=== PATIENT | female | born 1950 | race Caucasian/White ===

== ENCOUNTER 2022-05-02 19:18 | Emergency (ER) | payer MEDICARE, OTHER ==
[~2022-05-02] VITALS: Ht 167.6 cm; Wt 72.6 kg
--- OUTSIDE RECORDS SUMMARY | 2022-05-02 19:20 | XMS ---
PreManage Notification: GUILLERMINA HOPKINS Security Transportation Refrigeration Technician Events No recent Security Events currently on file CRITERIA MET - [facility]ERNICE CARE PROVIDERS Nedra Lowery Physician Biology Adjunct Instructor Current [facility]O PHONE: Unknown SANDY BETTENCOURT Nurse Practitioner: Family Current PHONE: Unknown Estelle has no Care Guidelines for this patient. Brent VISIT COUNT (12 MO.) John Lopes TOTAL 1 NOTE: Visits indicate total known visits. ED/UCC VISIT TRACKING (12 MO.) 05/02/2022 19:18 JUANPABLO Hernandez OR TYPE: Emergency COMPLAINT: - CHEST PAIN INPATIENT VISIT TRACKING (12 MO.) No inpatient visits to display in this time frame [email or web address]
[2022-05-02] MEDS ORDERED: ARMOUR THYROID90 MG PO (19:51)
[2022-05-02] MEDS ORDERED: DIAZEPAM5 MG PO (19:52)
[2022-05-02] MEDS ORDERED: LISINOPRIL5 MG PO (19:52)
[2022-05-02] MEDS ORDERED: IBUPROFEN800 MG PO (19:52)
[2022-05-02] MEDS ORDERED: AZELASTINE205.5 MCG/ NS (19:53)
[2022-05-02] MEDS ORDERED: OMEPRAZOLE20 MG PO (19:53)
[2022-05-02] MEDS ORDERED: CLARITIN10 M2 PO (19:53)
[2022-05-02] MEDS ORDERED: FLONASE ALLERG9.9 ML NAS (19:54)
--- NOTE | 2022-05-03 06:34 | EKG ---
[facility] [address] [place], [place] [address] Signed Normal sinus rhythm Normal ECG No previous ECGs available Confirmed by KATIE HARDWICK MD ([id number]) on 05/03/2022 6:34:22 AM Electronically Signed By: KATIE HARDWICK MD 05/03/22 0634 PATIENT NAME: RAJ HOPKINSH MARIA ISABEL Electrocardiogram DATE OF : 48 PHYSICIAN: KATIE HARDWICK MD REPORT #: [id number] REPORT IS CONFIDENTIAL AND NOT TO BE RELEASED WITHOUT AUTHORIZATION
== END 2022-05-02 20:37 | disposition home or self-care (01) ==
LOC: ED 19:18
DX: I49.3 Ventricular premature depolarization (principal); G89.29 Other chronic pain; R07.9 Chest pain, unspecified; Z91.012 Allergy to eggs; Z91.011 Allergy to milk products; Z88.5 Allergy status to narcotic agent; Z88.8 Allergy status to other drugs, medicaments and biological substances; Z91.018 Allergy to other foods; Z79.899 Other long term (current) drug therapy
CPT/HCPCS: 36415; 71045; 80053; 83735; 84484; 85025; 93005; 93010; A9270

== ENCOUNTER 2024-04-26 14:46 | Emergency (ER) | payer MEDICARE, OTHER ==
[~2024-04-26] VITALS: Ht 167.6 cm; Wt 70.5 kg
--- OUTSIDE RECORDS SUMMARY | ~2024-04-26 | XMS | Continuity of Care Document ---
Demographics + + + | Address | [address] | | | [place] [address] | + + + | Preferred Language | Unknown | + + + | Marital Status | | + + + | Jainism Affiliation | Unknown | + + + | Race | White | + + + | Ethnic Group | Not or | + + + Author + + + | Author | [facility] | + + + | Organization | [facility] | + + + | Address | [address] | | | [place] [address] | + + + | Phone | | + + + Care Team Providers + + + + | Care Germination Testing Manager Name | Role | Phone | + + + + Unavailable | Unavailable | + + + + Unavailable | Unavailable | + + + + Allergies No information. Encounters No information. Functional Status No information. Immunizations No information. Medications + + + + | date | description | facility | + + + + | 2024-04-08 00:00 | Ibuprofen 800 MG Oral | [facility] | | | Tablet | | + + + + | 2024-04-06 00:00 | Methocarbamol 500 MG Oral | [facility] | | | Tablet | | + + + + | 2024-04-08 00:00 | ibuprofen 800 MG Oral | [facility] | | | Tablet | | + + + + | 2024-04-06 00:00 | methocarbamol 500 MG Oral | [facility] | | | Tablet | | + + + + | 2024-04-06 00:00 | sumatriptan 50 MG Oral | [facility] | | | Tablet | | + + + + | 2024-04-06 00:00 | SUMAtriptan Succinate 50 | [facility] | | | MG Oral Tablet | | + + + + Problems + + + + | date | description | facility | + + + + | 2024-04-06 00:00 | Migraine with aura | [facility] | | | (disorder) | | + + + + | 2024-04-06 00:00 | Chronic (qualifier value) | [facility] | + + + + | 2024-04-06 00:00 | Classic Migraine with Aura | [facility] | | | Chronic Without Intractable | | | | Migraine Without Status | | | | Migrainosus | | + + + + Procedures No information. Results/Labs +--------+--------+ +---------+--------+---------+ | test | date | facility | value | unit | notes | +--------+--------+ +---------+--------+---------+ + + | Result panel 1 | + + + + + + + + + | No Results | (no date) | [facility] | No Results | (missing) | (missing) | | [facility] | | | | | Group | | | | + + + + + + + + + | Result panel 2 | + + + + + + + + + | No Results | (no date) | [facility] | No Results | (missing) | (missing) | | | | Medical | | | | | | | Group | | | | + + + + + + + + + | Result panel 3 | + + + + + + + + + | No Results | (no date) | [facility] | No Results | (missing) | (missing) | | | | Medical | | | | | | | Group | | | | + + + + + + + Social History + + + + | date | description | facility | + + + + | 2024-03-17 00:00 | Unknown if ever smoked | [facility] | + + + + | 2024-03-17 00:00 | Smokes tobacco daily | [facility] | | | (finding) | | + + + + | 2024-03-17 00:00 | Smoker (finding) | [facility] | + + + + | 2024-03-17 00:00 | Ex-smoker (finding) | [facility] | + + + + | 2024-04-06 00:00 | Unknown if ever smoked | [facility] | + + + + | 2024-04-06 00:00 | Smokes tobacco daily | [facility] | | | (finding) | | + + + + | 2024-04-06 00:00 | Smoker (finding) | [facility] | + + + + | 2024-04-06 00:00 | Ex-smoker (finding) | [facility] | + + + + | 2024-04-14 00:00 | Unknown if ever smoked | [facility] | + + + + | 2024-04-14 00:00 | Smokes tobacco daily | [facility] | | | (finding) | | + + + + | 2024-04-14 00:00 | Smoker (finding) | [facility] | + + + + | 2024-04-14 00:00 | Ex-smoker (finding) | [facility] | + + + + Vital Signs + + + +---------+ | date | measurement | value | units | + + + +---------+ | 2024-04-06 00:00 | BMI | 26 | 1 | + + + +---------+ | 2024-04-06 00:00 | BP_diastolic | 48 | mmHg | + + + +---------+ | 2024-04-06 00:00 | BP_systolic | 142 | mmHg | + + + +---------+ | 2024-04-06 00:00 | BSA | 1.8 | 1 | + + + +---------+ | 2024-04-06 00:00 | heart_rate | 71 | /min | + + + +---------+ | 2024-04-06 00:00 | height_metric | 167.64 | cm | + + + +---------+ | 2024-04-06 00:00 | height_standard | 66 | in | + + + +---------+ | 2024-04-06 00:00 | o2_saturation | 96 | % | + + + +---------+ | 2024-04-06 00:00 | respiration_rate | 18 | /min | + + + +---------+ | 2024-04-06 00:00 | temperature_metric | 36.33 | C | | | | | | + + + +---------+ | 2024-04-06 00:00 | | 97.4 | F | | | temperature_standar | | | | | d | | | + + + +---------+ | 2024-04-06 00:00 | weight_metric | 73.09 | kg | + + + +---------+ | 2024-04-06 00:00 | weight_standard | 161.13 | lb | + + + +---------+"
[~2024-04-26 14:46] MED LIST: ARMOUR THYROID90 MG PO; AZELASTINE205.5 MCG/ NS; CLARITIN10 M2 PO; DIAZEPAM5 MG PO; FLONASE ALLERG9.9 ML NAS; IBUPROFEN800 MG PO; LISINOPRIL5 MG PO; OMEPRAZOLE20 MG PO
[2024-04-26 14:57] LABS: BASOPHILS 0.8 % (0-2); EOSINOPHILS 0.7 % (0-6); HEMATOCRIT 41.4 % (35.0-50.0); HEMOGLOBIN 14.5 g/dL (12.0-18.0); LYMPHOCYTES 26.6 % (24-44); MCH 32.9 (27-36); MCV 93.9 fl (81-99); MONOCYTES 6.4 % (0-12); NEUTROPHILS 65.5 % (39-80); PLATELET COUNT 159 K/uL (140-440); RBC 4.41 M/ul (4.3-5.7); RDW 14.6 (10.5-15.0)
[2024-04-26 15:26] LABS: ALBUMIN 3.7 g/dL (3.4-5.0); ALBUMIN/GLOBULIN RATIO 1.28 (1.1-2.4); ANION GAP 15.7 (7-21); BILIRUBIN, TOTAL 0.5 ng/dL (0.2-1.0); BUN/CREATININE RATIO 11.59 (6.0-28.6); CALCIUM 9.4 mg/dL (8.5-10.1); CREATININE, SERUM 1.38 mg/dL (0.55-1.02); POTASSIUM 3.7 mmol/L (3.5-5.1); PROTEIN, TOTAL 6.6 g/dL (6.4-8.2)
[2024-04-26 18:29] VITALS: BP 134/60
--- NOTE | 2024-04-27 07:50 | EKG ---
[facility] [address] [place], [place] [address] Signed Normal sinus rhythm Normal ECG When compared with ECG of 24-SEP-2023 13:46, No significant change was found Confirmed by Jayant Sesay MD ([id number]) on 04/27/2024 7:50:10 AM Electronically Signed By: JAYANT SESAY MD 04/27/24 0750 PATIENT NAME: RAJ HOPKINSBryant BREENE Electrocardiogram DATE OF : 48 PHYSICIAN: JAYANT SESAY MD REPORT #: [id number] REPORT IS CONFIDENTIAL AND NOT TO BE RELEASED WITHOUT AUTHORIZATION
== END 2024-04-26 18:05 | disposition home or self-care (01) ==
LOC: ED 14:46
PROVIDERS: Emergency Medicine
DX: R07.89 Other chest pain (principal); I10 Essential (primary) hypertension; Z88.5 Allergy status to narcotic agent; Z88.8 Allergy status to other drugs, medicaments and biological substances; Z91.012 Allergy to eggs; K21.9 Gastro-esophageal reflux disease without esophagitis; Z79.899 Other long term (current) drug therapy
CPT/HCPCS: 36415; 71045; 76705; 80053; 83690; 83735; 83880; 84484; 85025; 93005; 93010; 99285-25

== ENCOUNTER 2024-08-26 12:16 | Emergency (ER) | payer MEDICARE, OTHER ==
[~2024-08-26] VITALS: Ht 167.6 cm; Wt 72.6 kg
[2024-08-26] MEDS ORDERED: LORazepam 1 MG TAB PO ONE (12:45)
[2024-08-26] MEDS ORDERED: NEURONTIN300 MG PO (14:44)
[2024-08-26] MEDS ORDERED: METHYLPREDNISOLO4 M1 PO (14:44)
[2024-08-26] MEDS ORDERED: DEXAMETHASONE SOD PHOS 10 MG/ML VIAL IV ONE (14:45)
[2024-08-26] MEDS ORDERED: DEXAMETHASONE SOD PHOS 10 MG/ML VIAL PO ONE (15:00)
[2024-08-26 15:06] VITALS: BP 140/74
== END 2024-08-26 15:04 | disposition home or self-care (01) ==
LOC: ED 12:16
DX: M54.16 Radiculopathy, lumbar region (principal); M48.061 Spinal stenosis, lumbar region without neurogenic claudication; I10 Essential (primary) hypertension; K21.9 Gastro-esophageal reflux disease without esophagitis; Z88.5 Allergy status to narcotic agent; Z88.8 Allergy status to other drugs, medicaments and biological substances; Z88.1 Allergy status to other antibiotic agents; Z91.012 Allergy to eggs; Z91.011 Allergy to milk products; Z91.018 Allergy to other foods; Z79.899 Other long term (current) drug therapy
CPT/HCPCS: 72148; 99283; A9270-GY; J1100

== ENCOUNTER 2024-11-04 12:44 | Emergency (ER) | payer MEDICARE, OTHER ==
[~2024-11-04] VITALS: Ht 167.6 cm; Wt 69.0 kg
--- OUTSIDE RECORDS SUMMARY | ~2024-11-04 | XMS | Continuity of Care Document ---
Demographics + + + | Address | [address] | | | [place] [address] | + + + | Preferred Language | Unknown | + + + | Marital Status | | + + + | Confucianist Affiliation | Unknown | + + + | Race | Unknown | + + + | Ethnic Group | Unknown | + + + Author + + + | Author | [facility] | + + + | Organization | [facility] | + + + | Address | [address] | | | [place] [address] | + + + | Phone | | + + + Care Team Providers + + + + | Care Reference Test Clerk Name | Role | Phone | + + + + Unavailable | Unavailable | + + + + Unavailable | Unavailable | + + + + Allergies No information. Encounters No information. Functional Status No information. Immunizations No information. Medications + + + + | date | description | facility | + + + + | 2024-08-25 00:00 | diazepam 5 MG Oral Tablet | [facility] | | | | | + + + + | 2024-08-25 00:00 | diazePAM 5 MG Oral Tablet | [facility] | | | | | + + + + Problems No information. Procedures No information. Results/Labs +--------+--------+ +---------+--------+---------+ | test | date | facility | value | unit | notes | +--------+--------+ +---------+--------+---------+ + + | Result panel 1 | + + + + + + + + + | No Results | (no date) | [facility] | No Results | (missing) | (missing) | | [facility] | | | | + + + + + + + + + | Result panel 2 | + + + + + +-------+---------+ + | CHOLESTEROL | 2024-09-10 | [facility] | 233 | mg/dL | (missing) | | | 09:07 [facility] | | | | + + + +-------+---------+ + + + | Result panel 3 | + + + + + +------+-------+ + | AST(SGOT) | 2024-09-10 | [facility] | 15 | U/L | (missing) | | | 09:07 [facility] | | | | | [facility] | | | | + + + +------+-------+ + + + | Result panel 4 | + + + + + +------+-------+ + | ALKALINE | 2024-09-10 | [facility] | 72 | U/L | (missing) | | PHOS | 09:07 [facility] | [facility] | | | | + + + +------+-------+ + + + | Result panel 5 | + + + + + +--------+---------+ + | CREATININE, | 2024-09-10 | [facility] | 1.07 | mg/dL | (missing) | | SERUM | 09:07 | [facility] | | | | | | [facility] | | | | + + + +--------+---------+ + + + | Result panel 6 | + + + + + +-------+---------+ + | CALCIUM | 2024-09-10 | [facility] | 9.2 | mg/dL | (missing) | | | 09:07 [facility] | | | | | [facility] | | | | + + + +-------+---------+ + + + | Result panel 7 | + + + + + +--------+---------+ + | BILIRUBIN, | 2024-09-10 | [facility] | 0.43 | mg/dL | (missing) | | TOTAL | 09:07 | [facility] | | | | | [facility] | | | | + + + +--------+---------+ + + + | Result panel 8 | + + + + + +-------+--------+ + | PROTEIN | 2024-09-10 | [facility] | 6.3 | g/dL | (missing) | | | 09:07 [facility] | | | | | | [facility] | | | | + + + +-------+--------+ + + + | Result panel 9 | + + + + + +-------+--------+ + | ALBUMIN | 2024-09-10 | [facility] | 4.2 | g/dl | (missing) | | | 09:07 | [facility] | | | | | | | [facility] | | | | + + + +-------+--------+ + + + | Result panel 10 | + + + + + +------+---------+ + | UREA | 2024-09-10 | [facility] | 21 | mg/dL | (missing) | | NITROGEN | 09:07 | [facility] | | | | | | | [facility] | | | | + + + +------+---------+ + + + | Result panel 11 | + + + + + +------+---------+ + | GLUCOSE | 2024-09-10 | [facility] | 99 | mg/dL | (missing) | | | 09:07 | [facility] | | | | | | [facility] | | | | + + + +------+---------+ + + + | Result panel 12 | + + + + + +-------+---------+ + | CHLORIDE | 2024-09-10 | [facility] | 107 | meq/L | (missing) | | | 09:07 | [facility] | | | | | | | [facility] | | | | + + + +-------+---------+ + + + | Result panel 13 | + + + + + +------+---------+ + | | 2024-09-10 | [facility] | 66 | mg/dL | (missing) | | TRIGLYCERIDE | 09:07 | [facility] | | | | | S | | [facility] | | | | + + + +------+---------+ + + + | Result panel 14 | + + + + + +------+---------+ + | CARBON | 2024-09-10 | [facility] | 27 | meq/L | (missing) | | DIOXIDE | 09:07 | [facility] | | | | | | | [facility] | | | | + + + +------+---------+ + + + | Result panel 15 | + + + + + +-------+---------+ + | SODIUM | 2024-09-10 | [facility] | 143 | meq/L | (missing) | | | 09:07 | [facility] | | | | | | | [facility] | | | | + + + +-------+---------+ + + + | Result panel 16 | + + + + + +-------+---------+ + | POTASSIUM | 2024-09-10 | [facility] | 4.1 | meq/L | (missing) | | | 09:07 | [facility] | | | | | | | [facility] | | | | + + + +-------+---------+ + + + | Result panel 17 | + + + + + +-------+ + + | A/G RATIO | 2024-09-10 | [facility] | 2.0 | (missing) | (missing) | | | 09:07 | [facility] | | | | | | | [facility] | | | | + + + +-------+ + + + + | Result panel 18 | + + + + + +--------+ + + | | 2024-09-10 | [facility] | 19.6 | (missing) | (missing) | | BUN/CREAT.RA | 09:07 | MEDICAL | | | | | LEI | | [facility] | | | | + + + +--------+ + + + + | Result panel 19 | + + + + + +--------+ + + | ANION GAP | 2024-09-10 | [facility] | 13.1 | (missing) | (missing) | | | 09:07 | [facility] | | | | | | | [facility] | | | | + + + +--------+ + + + + | Result panel 20 | + + + + + +-------+--------+ + | GLOBULIN | 2024-09-10 | [facility] | 2.1 | g/dl | (missing) | | | 09:07 | [facility] | | | | | | | [facility] | | | | + + + +-------+--------+ + + + | Result panel 21 | + + + + + +------+ + + | GFR | 2024-09-10 | [facility] | 54 | ml/min | (missing) | | ESTIMATION | 09:07 | [facility] | | | | | | | [facility] | | | | + + + +------+ + + + + | Result panel 22 | + + + + + +------+-------+ + | ALT(SGPT) | 2024-09-10 | [facility] | 11 | U/L | (missing) | | | 09:07 | [facility] | | | | | | | [facility] | | | | + + + +------+-------+ + + + | Result panel 23 | + + + + + +-------+---------+ + | FREE T3 | 2024-09-10 | [facility] | 2.9 | pg/ml | (missing) | | | 09:07 | [facility] | | | | | | | [facility] | | | | + + + +-------+---------+ + + + | Result panel 24 | + + + + + +-------+---------+ + | NON-HDL | 2024-09-10 | [facility] | 168 | mg/dL | (missing) | | CHOL | 09:07 | [facility] | | | | | | | [facility] | | | | + + + +-------+---------+ + + + | Result panel 25 | + + + + + +------+---------+ + | VITAMIN D | 2024-09-10 | [facility] | 11 | ng/mL | (missing) | | 25-OH | 09:07 | [facility] | | | | | | | [facility] | | | | + + + +------+---------+ + + + | Result panel 26 | + + +-------+ + +-------+--------+ + | WBC | 2024-09-10 | [facility] | 7.1 | k/uL | (missing) | | | 09:07 | [facility] | | | | | | | [facility] | | | | +-------+ + +-------+--------+ + + + | Result panel 27 | + + +-------+ + +--------+--------+ + | RBC | 2024-09-10 | [facility] | 4.53 | M/ul | (missing) | | | 09:07 | [facility] | | | | | | | [facility] | | | | +-------+ + +--------+--------+ + + + | Result panel 28 | + + + + + +--------+--------+ + | HEMOGLOBIN | 2024-09-10 | [facility] | 14.7 | g/dl | (missing) | | | 09:07 | [facility] | | | | | | | [facility] | | | | + + + +--------+--------+ + + + | Result panel 29 | + + + + + +--------+-----+ + | HEMATOCRIT | 2024-09-10 | [facility] | 43.1 | % | (missing) | | | 09:07 | [facility] | | | | | | | [facility] | | | | + + + +--------+-----+ + + + | Result panel 30 | + + +-------+ + +--------+------+ + | MCV | 2024-09-10 | [facility] | 95.0 | fL | (missing) | | | 09:07 | [facility] | | | | | | | [facility] | | | | +-------+ + +--------+------+ + + + | Result panel 31 | + + +-------+ + +------+------+ + | MCH | 2024-09-10 | [facility] | 32 | pg | (missing) | | | 09:07 | [facility] | | | | | | | [facility] | | | | +-------+ + +------+------+ + + + | Result panel 32 | + + +--------+ + +------+--------+ + | MCHC | 2024-09-10 | [facility] | 34 | g/dL | (missing) | | | 09:07 | [facility] | | | | | | | [facility] | | | | +--------+ + +------+--------+ + + + | Result panel 33 | + + +-------+ + +--------+-----+ + | RDW | 2024-09-10 | [facility] | 14.9 | % | (missing) | | | 09:07 | [facility] | | | | | | [facility] | | | | +-------+ + +--------+-----+ + + + | Result panel 34 | + + + + + +--------+-----+ + | LYMPHOCYTES | 2024-09-10 | [facility] | 25.2 | % | (missing) | | | 09:07 | [facility] | | | | | | [facility] | | | | + + + +--------+-----+ + + + | Result panel 35 | + + +-------+ + +--------+---------+ + | HDL | 2024-09-10 | [facility] | 65.4 | mg/dL | (missing) | | | 09:07 | [facility] | | | | | | | [facility] | | | | +-------+ + +--------+---------+ + + + | Result panel 36 | + + + + + +--------+-----+ + | NEUTROPHILS | 2024-09-10 | [facility] | 65.7 | % | (missing) | | | 09:07 [facility] | | | | | [facility] | | | | + + + +--------+-----+ + + + | Result panel 37 | + + + + + +-------+-----+ + | MONOCYTES | 2024-09-10 | [facility] | 5.9 | % | (missing) | | | 09:07 | [facility] | | | | | | | [facility] | | | | + + + +-------+-----+ + + + | Result panel 38 | + + + + + +-------+-----+ + | EOSINOPHILS | 2024-09-10 | [facility] | 2.0 | % | (missing) | | | 09:07 | [facility] | | | | | | | [facility] | | | | + + + +-------+-----+ + + + | Result panel 39 | + + + + + +-------+-----+ + | BASOPHILS | 2024-09-10 | [facility] | 1.2 | % | (missing) | | | 09:07 [facility] | | | | | | | [facility] | | | | + + + +-------+-----+ + + + | Result panel 40 | + + + + + +--------+--------+ + | NEUT, | 2024-09-10 | [facility] | 4.66 | k/uL | (missing) | | ABSOLUTE | 09:07 | [facility] | | | | | | | [facility] | | | | + + + +--------+--------+ + + + | Result panel 41 | + + + + + +--------+--------+ + | LYMPH, | 2024-09-10 | [facility] | 1.79 | k/uL | (missing) | | ABSOLUTE | 09:07 | [facility] | | | | | | | [facility] | | | | + + + +--------+--------+ + + + | Result panel 42 | + + + + + +--------+--------+ + | TOMAS, | 2024-09-10 | [facility] | 0.42 | K/ul | (missing) | | ABSOLUTE | 09:07 | [facility] | | | | | | | [facility] | | | | + + + +--------+--------+ + + + | Result panel 43 | + + + + + +--------+--------+ + | WENDI, | 2024-09-10 | [facility] | 0.09 | k/uL | (missing) | | ABSOLUTE | 09:07 [facility] | | | | | | | [facility] | | | | + + + +--------+--------+ + + + | Result panel 44 | + + + + + +--------+--------+ + | EOS, | 2024-09-10 | [facility] | 0.14 | k/uL | (missing) | | ABSOLUTE | 09:07 | [facility] | | | | | | | [facility] | | | | + + + +--------+--------+ + + + | Result panel 45 | + + + + + +--------+--------+ + | BAND, | 2024-09-10 | [facility] | 0.00 | k/uL | (missing) | | ABSOLUTE | 09:07 [facility] | | | | | | | [facility] | | | | + + + +--------+--------+ + + + | Result panel 46 | + + +-------+ + +-------+---------+ + | LDL | 2024-09-10 | [facility] | 154 | mg/dL | (missing) | | | 09:07 | [facility] | | | | | | | [facility] | | | | +-------+ + +-------+---------+ + + + | Result panel 47 | + + + + + +--------+--------+ + | OTHER, | 2024-09-10 | [facility] | 0.00 | K/uL | (missing) | | ABSOLUTE | 09:07 [facility] | | | | | | | [facility] | | | | + + + +--------+--------+ + + + | Result panel 48 | + + + + + +-------+--------+ + | PLATELET | 2024-09-10 | [facility] | 187 | K/ul | (missing) | | COUNT | 09:07 | [facility] | | | | | | | [facility] | | | | + + + +-------+--------+ + + + | Result panel 49 | + + + + + + + + + | Reported | 2024-09-10 | [facility] | See Note | (missing) | (missing) | | [facility] | 09:07 [facility] | | | | | | | [facility] | | | | + + + + + + + + + | Result panel 50 | + + +--------+ + +------+---------+ + | VLDL | 2024-09-10 | [facility] | 13 | mg/dL | (missing) | | | 09:07 | [facility] | | | | | | | [facility] | | | | +--------+ + +------+---------+ + + + | Result panel 51 | + + + + + +-------+ + + | CHOL/HDL | 2024-09-10 | [facility] | 3.6 | (missing) | (missing) | | | 09:07 | [facility] | | | | | | | [facility] | | | | + + + +-------+ + + + + | Result panel 52 | + + + + + + + + + | TSH, 3rd | 2024-09-10 | [facility] | 48.700 | uIU/ml | (missing) | | GEN. | 09:07 | [facility] | | | | | | | [facility] | | | | + + + + + + + + + | Result panel 53 | + + + + + +--------+---------+ + | FREE T4 | 2024-09-10 | [facility] | 0.61 | ng/dl | (missing) | | | 09:07 | [facility] | | | | | | | [facility] | | | | + + + +--------+---------+ + Social History + + + + | date | description | facility | + + + + | (no date) | Unknown if ever smoked | [facility] | | | | | + + + + | (no date) | Smokes tobacco daily | [facility] | | | (finding) | | + + + + | (no date) | Smoker (finding) | [facility] | | | | | + + + + | (no date) | Ex-smoker (finding) | [facility] | | | | | + + + + Vital Signs No information."
[~2024-11-04 12:44] MED LIST changes: +METHYLPREDNISOLO4 M1 PO; +NEURONTIN300 MG PO
[2024-11-04] MEDS ORDERED: ATIVAN1 MG PO (13:11)
[2024-11-04] MEDS ORDERED: LEXAPRO10 MG PO (13:11)
[2024-11-04] MEDS ORDERED: LORazepam 1 MG TAB PO ONE (13:15)
[2024-11-04 13:56] VITALS: BP 180/82
== END 2024-11-04 14:02 | disposition home or self-care (01) ==
LOC: ED 12:44
DX: F41.9 Anxiety disorder, unspecified (principal); K21.9 Gastro-esophageal reflux disease without esophagitis; I10 Essential (primary) hypertension; Z88.5 Allergy status to narcotic agent; Z91.040 Latex allergy status; Z91.018 Allergy to other foods; Z91.012 Allergy to eggs; Z88.8 Allergy status to other drugs, medicaments and biological substances
CPT/HCPCS: 99283; A9270-GY